=== PATIENT | male | born 1965 | race Caucasian/White ===

== ENCOUNTER 2023-08-10 01:03 | Emergency (ER) | payer SELFPAY ==
[2023-08-10] MEDS ORDERED: Silver Sulfadiazine 50 GM JAR ONE (01:30)
[2023-08-10] MEDS ORDERED: Boostrix 0.5 ML (Tdap) VIAL (>/=7 yrs of age) ONE (01:30)
== END 2023-08-10 02:00 | disposition home or self-care (01) ==
LOC: ERS 01:03
DX: T23.252A Burn of second degree of left palm, initial encounter (principal); T31.0 Burns involving less than 10% of body surface; Z23 Encounter for immunization; X19.XXXA Contact with other heat and hot substances, initial encounter
CPT/HCPCS: 90471; 90715